=== PATIENT | male | born 1975 | race Caucasian/White ===

== ENCOUNTER 2016-07-05 12:00 | Emergency (ER) | payer BC ==
[2016-07-05 15:27] VITALS: BP 127/79
--- NOTE | 2016-07-05 15:49 | UC ---
Respiratory Complaint HPI - HPI Summary HPI Summary: cold symptoms for [address] has resolved, but very stuffed up in sinuses. Minimal cough. No fever. Mild headache and body ache, fatigue, malaise. Able to eat and drink. No vomiting or diarrhea. - History of Current Complaint Chief Complaint: UCGeneralIllness Stated Complaint: RESPIRATORY COMPLAINT Time Seen by Provider: 07/05/16 14:57 Hx Obtained From: Patient Onset/Duration: Gradual Onset, Lasting Days - 5 Timing: Constant Severity Initially: Mild Severity Currently: Moderate Character: Cough: Nonproductive Aggravating Factors: Recumbent Position Alleviating Factors: Nothing Associated Signs And Symptoms: Positive: URI, Nasal Congestion, Hoarseness, Sinus Discomfort. Negative: Dyspnea, Fever, Chills, Pleuritic Chest Pain - Risk Factors Pulmonary Embolism Risk Factors: Negative Cardiac Risk Factors: Negative Pseudomonas Risk Factors: Negative Tuberculosis Risk Factors: Negative - Allergies/Home Medications Allergies/Adverse Reactions: Allergies Allergy/AdvReac Type Severity Reaction Status Date / Time No Known Allergies Allergy Verified 07/05/16 15:27 Home Medications: Home Medications Pseudoephedrine HCL ER TAB* [Sudafed 12 Hour*] 120 mg PO BID 07/05/16 [History Confirmed 07/05/16] PMH/Surg Hx/FS Hx/Imm Hx Previously Healthy: Yes Respiratory History Of: Denies: COPD, Asthma - Surgical History Surgical History: None Surgery Procedure, Year, and Place: denies - Family History Known Family History: Positive: None, Hypertension - father, Diabetes - father - Social History Occupation: Employed Full-time - drives plow for [employer] Lives: With Family Alcohol Use: Occasionally Substance Use Type: None Smoking Status (MU): Never Smoked Tobacco Amount Used/How Often: 1 can per day Length of Time of Smoking/Using Tobacco: started ~ age 14 Review of Systems Constitutional: Chills, Fatigue Skin: Negative Eyes: Negative ENT: Sore Throat, Nasal Discharge Respiratory: Cough - dry, mild Cardiovascular: Negative Gastrointestinal: Negative Genitourinary: Negative Motor: Negative Neurovascular: Negative Musculoskeletal: Negative Neurological: Negative Psychological: Negative All Other Systems Reviewed And Are Negative: Yes Physical Exam Triage Information Reviewed: Yes Appearance: Well-Appearing, No Pain Distress, Well-Nourished Vital Signs: Initial Vital Signs Temp 97.6 F 07/05/16 15:24 Pulse 104 07/05/16 15:24 Resp 16 07/05/16 15:24 BP 127/79 07/05/16 15:24 Pulse Ox 97 07/05/16 15:24 Vital Signs Reviewed: Yes Eye Exam: Normal Eyes: Positive: Conjunctiva Clear ENT: Positive: Hearing grossly normal, Pharynx normal, Nasal congestion, TMs normal, Muffled/hoarse voice - hoarse. Negative: Tonsillar swelling, Tonsillar exudate, Trismus Neck exam: Normal Neck: Positive: Supple Respiratory Exam: Normal Respiratory: Positive: Lungs clear, Normal breath sounds, No respiratory distress, No accessory muscle use Cardiovascular Exam: Normal Musculoskeletal Exam: Normal Neurological Exam: Normal Psychological Exam: Normal Skin Exam: Normal UC Diagnostic Evaluation - Laboratory O2 Sat by Pulse Oximetry: 97 Respiratory Course/Dx - Differential Dx/Diagnosis Differential Diagnosis/HQI/PQRI: Lower Resp Infection, Sinusitis Provider Diagnoses: URI Discharge - Discharge Plan Condition: Stable Disposition: HOME Prescriptions: Guaifenesin-Codeine [Cheratussin AC] 1 - 2 teasp PO Q6HR PRN #120 ml MDD 30ml PRN Reason: Cough Oxymetazoline HCl [Afrin Nasal [place]] 0.05 % NA BID PRN #1 spr PRN Reason: Congestion Patient Education Materials: Upper Respiratory Infection (ED) Forms: *Work Release Referrals: Chuck Bronson MD [Primary Care Provider] - Additional Instructions: This winter's upper respiratory infection has been unusually prolonged. You will probably have symptoms that will drag on for 3-5 weeks, particularly a cough. You should feel better as the days go by, however. Return for re- evaluation if you start running a fever or having trouble breathing, or if your face is swollen and red over the sinuses
== END 2016-07-05 16:00 | disposition home or self-care (01) ==
LOC: UCCORT 12:00
DX: J06.9 Acute upper respiratory infection, unspecified (principal); F17.220 Nicotine dependence, chewing tobacco, uncomplicated
CPT/HCPCS: 99212; G0463

== ENCOUNTER 2016-07-21 12:48 | Emergency (ER) | payer BC ==
[2016-07-21 14:28] VITALS: BP 124/80
--- NOTE | 2016-07-21 14:50 | UC ---
HPI Febrile Illness - HPI Summary HPI Summary: here 2.5 weeks ago with URI. [place] like those symptoms resolved. Then yesterday started feeling bad at work, went home, had shaking chills and temp of 102. "Could not get warm", malaise, sore throat, headache, fatigue, malaise. Similar symptoms today. - History of Current Complaint Chief Complaint: UCGeneralIllness Time Seen by Provider: 07/21/16 14:34 Hx Obtained From: Patient Onset/Duration: Started Days Ago - 1 Timing: Constant Initial Severity: Mild Current Severity: Mild Aggravating Factors: Nothing Alleviating Factors: OTC Medicine Associated Signs and Symptoms: Chills, Cough - dry, hacking, had resolved from 2 weeks ago and now harsh again, Diaphoresis - with fever last night, Headache, Myalgia, Night Sweats, Sore Throat - Risk Factors Pseudomonas Risk Factors: Negative Serious Bacterial Infection Risk Factors: Negative - Allergy/Home Medications Allergies/Adverse Reactions: Allergies Allergy/AdvReac Type Severity Reaction Status Date / Time No Known Allergies Allergy Verified 07/05/16 15:27 Home Medications: Home Medications Nyquil 07/21/16 [History] PMH/Surg Hx/FS Hx/Imm Hx Previously Healthy: Yes Respiratory History: Denies: Hx Asthma, Hx Chronic Obstructive Pulmonary Disease (COPD) - Surgical History Surgery Procedure, Year, and Place: denies Infectious Disease History: No Infectious Disease History: Denies: Hx Clostridium Difficile, Hx Hepatitis, Hx Human Immunodeficiency Virus (HIV), Hx of Known/Suspected MRSA, Hx Shingles, Hx Tuberculosis, Hx Known/ Suspected VRE, Hx Known/Suspected VRSA, History Other Infectious Disease, Traveled Outside the in Last 30 Days - Family History Known Family History: Positive: None, Hypertension - father, Diabetes - father - Social History Occupation: Employed Full-time Alcohol Use: Occasionally Substance Use Type: Reports: None Smoking Status (MU): Never Smoked Tobacco Amount Used/How Often: 1 can per day Length of Time of Smoking/Using Tobacco: started ~ age 14 Review of Systems Constitutional: Fever, Chills, Fatigue Skin: Negative Eyes: Negative ENT: Sore Throat, Nasal Discharge Respiratory: Cough Cardiovascular: Negative Gastrointestinal: Negative Genitourinary: Negative Motor: Negative Neurovascular: Negative Musculoskeletal: Myalgia Neurological: Negative Psychological: Negative All Other Systems Reviewed And Are Negative: Yes Physical Exam Triage Information Reviewed: Yes Appearance: Well-Appearing, No Pain Distress, Well-Nourished Vital Signs: Initial Vital Signs Temp 98.8 F 07/21/16 14:23 Pulse 88 07/21/16 14:23 Resp 18 07/21/16 14:23 BP 124/80 07/21/16 14:23 Pulse Ox 95 07/21/16 14:23 Vital Signs Reviewed: Yes Eye Exam: Normal ENT: Positive: Pharyngeal erythema, Nasal congestion, TMs normal. Negative: Tonsillar swelling, Tonsillar exudate, Trismus, Muffled/hoarse voice Neck exam: Normal Neck: Positive: Supple Respiratory Exam: Normal Respiratory: Positive: Lungs clear, Normal breath sounds, No respiratory distress, No accessory muscle use, Other: - harsh, dry cough Cardiovascular Exam: Normal Musculoskeletal Exam: Normal Neurological Exam: Normal Neurological: Positive: Alert, Muscle Tone Normal Psychological Exam: Normal Skin Exam: Normal Diagnostics - Laboratory Diagnostic Studies Completed/Ordered: flu neg; strep neg Course/Dx - Febrile Illness Differential Diagnoses: Bacteremia, Pneumonia, Viremia - Diagnoses Clinic Provider Diagnoses: URI Discharge - Discharge Plan Condition: Stable Disposition: HOME Prescriptions: Guaifenesin-Codeine [Cheratussin AC] 1 - 2 teasp PO Q4HR PRN #120 ml MDD 30ml PRN Reason: Cough Patient Education Materials: Viral Syndrome (ED)
== END 2016-07-21 15:38 | disposition home or self-care (01) ==
LOC: UCCORT 12:48
DX: J06.9 Acute upper respiratory infection, unspecified (principal); R50.9 Fever, unspecified; R09.81 Nasal congestion; R53.83 Other fatigue; F17.220 Nicotine dependence, chewing tobacco, uncomplicated
CPT/HCPCS: 87502; 87651; 99212; G0463

== ENCOUNTER 2018-02-02 12:54 | Emergency (ER) | payer BC, OTHER ==
[2018-02-02 13:28] VITALS: BP 124/78
--- NOTE | 2018-02-02 13:45 | UC ---
Shoulder Pain HPI - HPI Summary HPI Summary: The patient is a 42-year-old male who injured his left shoulder yesterday at work. He slipped as he was exiting the cab of a truck and grabbed a handle with his left hand. This caused a forced abduction injury to his left shoulder. Initially he thought he just strained his left trapezius however this morning his left anterior shoulder began to hurt and he started having some numbness and tingling of his left forearm. Left-handed. He denies any neck pain. As any other injury. - History of Current Complaint Chief Complaint: UCUpperExtremity Stated Complaint: LEFT SHOULDER INJURY Time Seen by Provider: 02/02/18 13:25 Hx Obtained From: Patient Onset/Duration: Sudden Onset Timing: Constant Severity Initially: Moderate Severity Currently: Moderate Pain Intensity: 7 Pain Scale Used: 0-10 Numeric Character: Aching, Throbbing Aggravating Factor(s): Movement, Lifting, Abduction Alleviating Factor(s): Rest, OTC Meds Associated Signs And Symptoms: Positive: Numbness/Tingling Related History: Occupational Injury, Dominant Hand Left Torso: 1 - tender 2 - pain 3 - tender/pain - Allergies/Home Medications Allergies/Adverse Reactions: Allergies Allergy/AdvReac Type Severity Reaction Status Date / Time No Known Allergies Allergy Verified 02/02/18 13:21 Home Medications: Home Medications Aspirin/Caffeine [Shiv Back & Body Pain Ex] 2 tab PO ONCE PRN 02/02/18 [ History Confirmed 02/02/18] PMH/Surg Hx/FS Hx/Imm Hx Previously Healthy: Yes - Surgical History Surgical History: None Surgery Procedure, Year, and Place: denies - Family History Known Family History: Positive: Hypertension - father, Diabetes - father - Social History Alcohol Use: Occasionally Substance Use Type: None Smoking Status (MU): Current Every Day Smoker Type: Smokeless Tobacco Amount Used/How Often: 1 can per day Length of Time of Smoking/Using Tobacco: started ~ age 14 Review of Systems Constitutional: Negative Skin: Negative Eyes: Negative ENT: Negative Respiratory: Negative Cardiovascular: Negative Gastrointestinal: Negative Genitourinary: Negative Motor: Negative Neurovascular: Negative Musculoskeletal: Arthralgia, Myalgia Neurological: Numbness Psychological: Negative Is Patient Immunocompromised?: No All Other Systems Reviewed And Are Negative: Yes Physical Exam Triage Information Reviewed: Yes Appearance: Well-Appearing, No Pain Distress, Well-Nourished Vital Signs: Initial Vital Signs Temp 97.4 F 02/02/18 13:22 Pulse 75 02/02/18 13:22 Resp 14 02/02/18 13:22 BP 124/78 02/02/18 13:22 Pulse Ox 99 02/02/18 13:22 Vital Signs Reviewed: Yes Eyes: Positive: Conjunctiva Clear ENT: Positive: Hearing grossly normal. Negative: Nasal congestion, Nasal drainage, Trismus, Muffled voice, Hoarse voice Neck: Positive: Supple, Nontender Respiratory: Positive: Lungs clear, Normal breath sounds, No respiratory distress Cardiovascular: Positive: RRR Musculoskeletal: Positive: ROM Intact - slow and painful but full rom left shoulder, No Edema Neurological: Positive: Alert Psychological Exam: Normal Skin Exam: Normal Diagnostics - Radiology No standard instances Xray Interpretation: No Acute Changes Radiology Interpretation Completed By: Radiologist Shoulder Course/Dx - Differential Dx/Diagnosis Provider Diagnoses: left shoulder trapezius strain/spasm Discharge - Sign-Out/Discharge Documenting (check all that apply): Patient Departure All imaging exams completed and their final reports reviewed: Yes - Discharge Plan Condition: Stable Disposition: HOME Patient Education Materials: Muscle Strain (ED) Referrals: Carlo Bermeo MD [Medical Doctor] - As Soon As Possible Additional Instructions: I suspect your symptoms are due to a muscle strain but I think you should follow up with an orthopedist if not improving It is possible to tear ligaments and if not improving you may need an MRI ice continue ibuprofen - Billing Disposition and Condition Condition: STABLE Disposition: Home
--- NOTE | 2018-02-02 14:14 | RAD ---
Indication: Posterior LEFT shoulder pain post fall. Popping sound. Comparison: No relevant prior exams available on the [facility] [place] PACS for comparison. Technique: Internal rotation AP, external rotation Grashey, scapular Y, axillary views LEFT shoulder Report: Negative for fracture Normal acromioclavicular and glenohumeral joint alignment. Moderate inferior acromial bone spur. Unremarkable soft tissue contours. IMPRESSION: #. No radiographic evidence for traumatic LEFT shoulder injury.
== END 2018-02-02 14:31 | disposition home or self-care (01) ==
LOC: UCCORT 12:54
DX: S43.492A Other sprain of left shoulder joint, initial encounter (principal); V68.4XXA Person boarding or alighting a heavy transport vehicle injured in noncollision transport accident, initial encounter; Y93.89 Activity, other specified; Y92.9 Unspecified place or not applicable; Y99.0 Civilian activity done for income or pay; F17.210 Nicotine dependence, cigarettes, uncomplicated
CPT/HCPCS: 99212; G0463

== ENCOUNTER 2019-02-24 14:55 | Emergency (ER) | payer BC, OTHER ==
[2019-02-24 15:43] VITALS: BP 116/82
--- NOTE | 2019-02-24 15:58 | UC ---
Throat Pain/Nasal Roel HPI - HPI Summary HPI Summary: 43-year-old male comes in with one week of upper respiratory tract infection symptoms. Them and runny nose that he gets sinus pressure is green rhinorrhea. Does have some postnasal drip and some dry cough. He's tried some over-the- counter medicines which to help some with the symptoms however overall he is worsening rather than getting better. No complaint of any shortness of breath. - History of Current Complaint Chief Complaint: UCGeneralIllness Stated Complaint: CONGESTION,COUGH,FEVER Time Seen by Provider: 02/24/19 15:47 Pain Intensity: 5 - Allergies/Home Medications Allergies/Adverse Reactions: Allergies Allergy/AdvReac Type Severity Reaction Status Date / Time No Known Allergies Allergy Verified 02/24/19 15:43 Home Medications: Home Medications Cetirizine* [ZyrTEC 10 MG TAB*] 1 tab PO ONCE 02/24/19 [History Confirmed ] Naproxen Sod/Diphenhydramine [Aleve PM 220-25 mg] 1 tab PO BEDTIME 02/24/19 [ History Confirmed 02/24/19] guaiFENesin [Mucinex] 1 tab PO ONCE 02/24/19 [History Confirmed 02/24/19] PMH/Surg Hx/FS Hx/Imm Hx Previously Healthy: Yes - Surgical History Surgical History: None Surgery Procedure, Year, and Place: denies - Family History Known Family History: Positive: Hypertension - father, Diabetes - father - Social History Alcohol Use: Occasionally Substance Use Type: None Smoking Status (MU): Current Every Day Smoker Type: Smokeless Tobacco Amount Used/How Often: 1 can per day Length of Time of Smoking/Using Tobacco: started ~ age 14 Review of Systems All Other Systems Reviewed And Are Negative: Yes Constitutional: Positive: Negative Skin: Positive: Negative Eyes: Positive: Negative ENT: Positive: Sore Throat, Nasal Discharge, Sinus Congestion, Sinus Pain/ Tenderness Respiratory: Positive: Cough Cardiovascular: Positive: Negative Gastrointestinal: Positive: Negative Motor: Positive: Negative Neurovascular: Positive: Negative Musculoskeletal: Positive: Negative Neurological: Positive: Negative Psychological: Positive: Negative Is Patient Immunocompromised?: No Physical Exam Triage Information Reviewed: Yes Appearance: Well-Appearing, No Pain Distress, Well-Nourished Vital Signs: Initial Vital Signs Temp 97.3 F 09/21/19 15:35 Pulse 91 02/24/19 15:35 Resp 18 02/24/19 15:35 BP 116/82 02/24/19 15:35 Pulse Ox 98 02/24/19 15:35 Vital Signs Reviewed: Yes Eye Exam: Normal Eyes: Positive: Conjunctiva Clear ENT: Positive: Pharyngeal erythema, Nasal congestion, Nasal drainage, TMs normal Neck: Positive: Supple Respiratory: Positive: Lungs clear, Normal breath sounds, No respiratory distress Cardiovascular: Positive: RRR Musculoskeletal: Positive: Strength Intact, ROM Intact Neurological: Positive: Alert, Muscle Tone Normal Psychological: Positive: Age Appropriate Behavior Skin Exam: Normal Throat Pain/Nasal Course/Dx - Course Course Of Treatment: DISCUSSED VIRAL VERSES BACTERIAL INFECTION AND THE ROLE OF ANTIBIOTICS. PATIENT PREFERS TO BE ON ANTIBIOTICS AT THIS TIME. - Differential Dx/Diagnosis Provider Diagnosis: Sinusitis Discharge ED - Sign-Out/Discharge Documenting (check all that apply): Patient Departure All imaging exams completed and their final reports reviewed: No Studies - Discharge Plan Condition: Stable Disposition: HOME Prescriptions: Amoxicillin PO (*) [Amoxicillin 875 MG (*)] 875 mg PO BID #20 tab Fluticasone NASAL SPRAY 50MCG* [Flonase NASAL SPRAY 50MCG*] 2 spray BOTH NARES DAILY #1 btl Patient Education Materials: Sinusitis (ED) Referrals: Chuck Bronson MD [Primary Care Provider] - Additional Instructions: FOLLOW UP WITH YOUR DOCTOR IF NOT COMPLETELY IMPROVED. GET REEVALUATED SOONER IF WORSE OR ANY QUESTIONS OR CONCERNS. - Billing Disposition and Condition Condition: STABLE Disposition: Home
== END 2019-02-24 16:06 | disposition home or self-care (01) ==
LOC: UCCORT 14:55
DX: J32.9 Chronic sinusitis, unspecified (principal); F17.290 Nicotine dependence, other tobacco product, uncomplicated
CPT/HCPCS: 99212; G0463

== ENCOUNTER 2019-05-14 12:54 | Emergency (ER) | payer BC ==
[2019-05-14 14:24] VITALS: BP 112/82
--- NOTE | 2019-05-14 14:52 | UC ---
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 Increased coughing, worst last night keeping him up all night. + sore throat x 24 hours. GF with similar symptoms. no GI symptoms, no fever, + chills. + fatigue, muscle aches. no improvement over 8 days. - History of Current Complaint Stated Complaint: COLD Time Seen by Provider: 05/14/19 14:18 Hx Obtained From: Patient Onset/Duration: Sudden Onset, Lasting Days Severity Initially: Mild Severity Currently: None Pain Intensity: 0 Pain Scale Used: 0-10 Numeric Character: Cough: Nonproductive Aggravating Factors: Recumbent Position Associated Signs And Symptoms: Positive: Chills, URI, Nasal Congestion, Sinus Discomfort. Negative: Dyspnea, Fever, Pleuritic Chest Pain, Wheezing, Hemoptysis, Dizziness, Calf Pain, Calf Swelling, Edema, Hoarseness - Allergies/Home Medications Allergies/Adverse Reactions: Allergies Allergy/AdvReac Type Severity Reaction Status Date / Time No Known Allergies Allergy Verified 05/14/19 14:19 Home Medications: Home Medications Dm/Acetaminophen/Doxylamine [Nighttime Cold-Flu Rlf Sftgl] 2 tab PO ONCE [History Confirmed 05/14/19] Pseudoephedrine HCl [Sudafed] 2 tab PO ONCE 05/14/19 [History Confirmed 05/14/19 ] PMH/Surg Hx/FS Hx/Imm Hx Previously Healthy: Yes - Surgical History Surgical History: None Surgery Procedure, Year, and Place: denies - Family History Known Family History: Positive: Hypertension - father, Diabetes - father, Non- Contributory - Social History Occupation: Employed Full-time Alcohol Use: Occasionally Substance Use Type: None Smoking Status (MU): Current Every Day Smoker Type: Smokeless Tobacco Amount Used/How Often: 1 can per day Length of Time of Smoking/Using Tobacco: started ~ age 14 Review of Systems All Other Systems Reviewed And Are Negative: Yes Constitutional: Positive: Chills, Fatigue. Negative: Fever Skin: Positive: Negative Eyes: Positive: Negative ENT: Positive: Sore Throat, Ear Ache, Sinus Congestion, Sinus Pain/Tenderness Respiratory: Positive: Cough. Negative: Shortness Of Breath Cardiovascular: Positive: Negative Gastrointestinal: Positive: Negative Neurological: Positive: Negative Is Patient Immunocompromised?: No Physical Exam Triage Information Reviewed: Yes Appearance: No Pain Distress, Well-Nourished, Ill-Appearing - mild Vital Signs: Initial Vital Signs Temp 97.1 F 05/14/19 14:20 Pulse 85 05/14/19 14:20 Resp 16 05/14/19 14:20 BP 112/82 05/14/19 14:20 Pulse Ox 98 05/14/19 14:20 Vital Signs Reviewed: Yes Eyes: Positive: Conjunctiva Clear ENT: Positive: Pharynx normal, Nasal congestion, Nasal drainage, TMs normal, Sinus tenderness - b/l max, Uvula midline. Negative: Tonsillar swelling, Tonsillar exudate Neck: Positive: Supple, Nontender, No Lymphadenopathy, Nuchal Rigidity, Enlarged Nodes @ Respiratory: Positive: Chest non-tender, Lungs clear, Normal breath sounds, No respiratory distress, No accessory muscle use. Negative: Respiratory distress, Crackles, Rhonchi, Stridor, Wheezing Cardiovascular: Positive: RRR, No Murmur Musculoskeletal Exam: Normal Neurological Exam: Normal Skin Exam: Normal Respiratory Course/Dx - Course Course Of Treatment: possible pneumonia - Cough medication with narcotic to help at night with sleep - Antibiotic as directed - Increase fluid intake - Increase rest - GO to ER with increased shortness of breath, chest pain - Differential Dx/Diagnosis Differential Diagnosis/HQI/PQRI: Asthma, Bronchitis, Lower Resp Infection, Sinusitis, Tuberculosis Provider Diagnosis: Pneumonia Discharge ED - Sign-Out/Discharge Documenting (check all that apply): Patient Departure All imaging exams completed and their final reports reviewed: No Studies - Discharge Plan Condition: Good Disposition: HOME Prescriptions: Amoxicillin/Clavulanate TAB* [Augmentin TAB 875*] 875 mg PO BID #10 tab Codeine Phosphate/Guaifenesin [Guaifen-Codeine 100-10 mg/5 ml] 5 ml PO BEDTIME PRN #10 ml MDD 5ml PRN Reason: Cough Patient Education Materials: Cold Symptoms (ED) Referrals: Chuck Bronson MD [Primary Care Provider] - Additional Instructions: - Cough medication with narcotic to help at night with sleep - Antibiotic as directed - Increase fluid intake - Increase rest - GO to ER with increased shortness of breath, chest pain - Billing Disposition and Condition Condition: GOOD Disposition: Home
== END 2019-05-14 15:02 | disposition home or self-care (01) ==
LOC: UCCORT 12:54
DX: J18.9 Pneumonia, unspecified organism (principal); R09.81 Nasal congestion; H92.09 Otalgia, unspecified ear; J02.9 Acute pharyngitis, unspecified; R51 Headache; F17.290 Nicotine dependence, other tobacco product, uncomplicated
CPT/HCPCS: 99212; G0463